=== PATIENT | female | born 1990 | race Caucasian/White ===

== ENCOUNTER → 2024-06-10 | Outpatient (CLI) | payer OTHER | LOC: MHCPAIN 08:28 | DX: M47.896 Other spondylosis, lumbar region (principal); M54.50 Low back pain, unspecified; D89.89 Other specified disorders involving the immune mechanism, not elsewhere classified; J84.9 Interstitial pulmonary disease, unspecified; M33.10 Other dermatomyositis, organ involvement unspecified | CPT/HCPCS: G0463 ==

== ENCOUNTER → 2024-06-17 | Outpatient (CLI) | payer OTHER | LOC: MHCPAIN 09:36 | DX: M47.817 Spondylosis without myelopathy or radiculopathy, lumbosacral region (principal); M54.50 Low back pain, unspecified | CPT/HCPCS: J0665 ==

== ENCOUNTER → 2024-06-25 | Outpatient (CLI) | payer OTHER | LOC: MHCPAIN 09:59 | DX: M54.50 Low back pain, unspecified (principal); D89.89 Other specified disorders involving the immune mechanism, not elsewhere classified | CPT/HCPCS: G0463 ==

== ENCOUNTER → 2024-08-01 | Outpatient (CLI) | payer OTHER | LOC: MHCPAIN 09:32 | DX: M47.817 Spondylosis without myelopathy or radiculopathy, lumbosacral region (principal); M54.50 Low back pain, unspecified | CPT/HCPCS: J0665 ==

== ENCOUNTER → 2024-08-06 | Outpatient (CLI) | payer OTHER | LOC: MHCPAIN 12:22 | DX: M47.896 Other spondylosis, lumbar region (principal); M54.50 Low back pain, unspecified; M35.89 Other specified systemic involvement of connective tissue; M33.10 Other dermatomyositis, organ involvement unspecified | CPT/HCPCS: G0463 ==

== ENCOUNTER → 2024-08-26 | Outpatient (CLI) | payer OTHER ==
[~2024-08-26] MED LIST: Lidocaine PF 2% (20 MG/ML) 5 ML VIAL ONE; Midazolam 2 MG/2 ML VIAL ONE; fentaNYL 50 MCG/ML 2 ML VIAL ONE
== END ==
LOC: MHCPAIN 08:28
DX: M47.817 Spondylosis without myelopathy or radiculopathy, lumbosacral region (principal); M54.50 Low back pain, unspecified
CPT/HCPCS: J0665; J2250; J3010

== ENCOUNTER → 2024-08-29 | Outpatient (CLI) | payer OTHER | LOC: MHCPAIN 10:03 | DX: M47.817 Spondylosis without myelopathy or radiculopathy, lumbosacral region (principal); M54.50 Low back pain, unspecified | CPT/HCPCS: J0665; J2250; J3010 ==